=== PATIENT | female | born 1940 | race Caucasian/White ===

== ENCOUNTER 2017-03-28 07:57 | Day surgery (SDC) | payer MEDICARE, BC ==
[~2017-03-28 07:57] MED LIST: Povidone-Iodine 5% Sterile Ophth Soln 30 ML Bottle EYELF ONE
[2017-03-28] MEDS ORDERED: Midazolam 1 MG/ML 2 ML SDV IV ONE (07:58)
[2017-03-28] MEDS ORDERED: Dexamethasone 4 MG/ML SDV IV ONE (07:58)
[2017-03-28] MEDS ORDERED: Sodium Chloride 0.9% 10 ML Syringe IV ONE (07:58)
[2017-03-28] MEDS ORDERED: Ondansetron 4 MG/2 ML SDV IVPUSH PRN (08:00)
[2017-03-28] MEDS ORDERED: Cataract Ophth Solution EYELF ONE (08:00)
[2017-03-28] MEDS ORDERED: Timolol Maleate 0.5% Ophth Soln 5 ML Bottle EYELF ONE (08:00)
[2017-03-28] MEDS ORDERED: Moxifloxacin 0.5% Ophth Soln 3 ML Bottle EYELF ONE (08:00)
[2017-03-28] MEDS ORDERED: Sodium Chloride 0.9% 10 ML Syringe FLUSH PRN (08:00)
[2017-03-28] MEDS ORDERED: Acetaminophen 325 MG Tab PO PRN (08:00)
[2017-03-28] MEDS ORDERED: Phenylephrine 10% Ophth Soln 5 ML Bot EYELF ONE (08:00)
[2017-03-28] MEDS ORDERED: Phenylephrine 10% Ophth Soln 5 ML Bot EYELF PRN (08:00)
[2017-03-28] MEDS ORDERED: Proparacaine 0.5% Ophth Soln 15 ML Bottle EYELF ONE (08:00)
[2017-03-28] MEDS ORDERED: Lidocaine 1% 30 ML SDV ONE (09:28)
[2017-03-28] MEDS ORDERED: Povidone-Iodine 5% Sterile Ophth Soln 30 ML Bottle EYELF ONE (09:28)
[2017-03-28] MEDS ORDERED: Diclofenac Sodium 0.1% Ophth Soln 5 ML Bottle EYELF ONE (09:29)
[2017-03-28] MEDS ORDERED: Apraclonidine 0.5% Ophth Soln 5 ML Bot EYELF ONE (09:29)
[2017-03-28] MEDS ORDERED: Balanced Salt Solution Ophth Irrig 500 ML Bottle IOCULAR ONE (09:29)
[2017-03-28] MEDS ORDERED: Tetracaine HCl/PF 0.5% 4 ML Bottle EYELF ONE (09:29)
[2017-03-28] MEDS ORDERED: Dexamethasone/Neomycin/Polymyxin B Ophth Oint 3.5 GM Tube EYELF ONE (09:29)
[2017-03-28] MEDS ORDERED: Chondroitin Sulfate/Hyaluronate Sodium Ophth Inj 0.75 ML Syringe EYELF ONE (09:30)
[2017-03-28] MEDS ORDERED: Vancomycin 500 MG SDV EYELF ONE (09:30)
[2017-03-28] MEDS ORDERED: Acetylcholine 20 MG/2 ML Intraocular Inj Kit EYELF ONE (09:33)
[2017-03-28] MEDS ORDERED: Chondroitin Sulfate/Hyaluronate Sodium Ophth Inj 0.5 ML Syringe IOCULAR ONE (09:33)
--- NOTE | 2017-03-28 10:44 | OR ---
DATE: 03/28/2017 PREOPERATIVE DIAGNOSES: 1. Visually significant cataract, left eye. 2. Primary open angle glaucoma, left eye. POSTOPERATIVE DIAGNOSES: 1. Visually significant cataract, left eye. 2. Primary open angle glaucoma, left eye. PROCEDURES: 1. Extracapsular cataract extraction with intraocular lens implant. 2. Placement of iStent for glaucoma control. ANESTHESIA: Local MAC. INDICATION FOR PROCEDURE: Ms. Johnston was seen in the clinic. She has complained of a slow progressive change in vision. Difficulty seeing up close, difficulty seeing at distance, difficulty with bright lights and glare. Clinical examination reveals mixed nuclear and cortical cataract. Examination also reveals mild primary open-angle glaucoma. I explained options. I offered cataract surgery and I explained risks including, but not limited to infection, retinal detachment, loss of vision, need for additional surgery amongst others. We discussed implant options. She has requested a monofocal implant. I offered surgery with or without the iStent. She requested the iStent. OPERATIVE DESCRIPTION: The patient was prepped and draped in a sterile fashion and topical anesthesia was applied. Attention was placed on the operative eye. A sterile lid speculum was placed to allow operative exposure. Paracentesis was made temporal. Intracameral lidocaine was administered. Viscoelastic was injected. A full-thickness corneal incision was made using the trapezoidal blade. Bent needle cystotome was then used to make a small nael in the anterior capsule and a 360-degree curvilinear capsulorrhexis was created. Nucleus was then hydrodissected and hydrodelineated using balanced saline solution. Nucleus was then decompressed centrally and rotated and noted to be free of adhesions. Nucleus was then removed using the phacoemulsification handpiece. Additional viscoelastic was then injected into the capsular bag and the intraocular lens was inserted into the capsular bag. The iStent portion of the procedure was then performed. Following removal of the nucleus and cortex, the irrigation and aspiration handpiece was inserted to remove viscoelastic from the posterior surface of the IOL. Additional viscoelastic was then inserted into the anterior chamber angle directly opposite the corneal incision. Miochol was injected into the nasal iris to promote pupillary contraction. The patient's head was then rotated 35 degrees away from the initial position. The operating microscope was also rotated 35 degrees to achieve the proper orientation. The gonioprism was then placed onto the eye. The iStent was then inserted into the anterior chamber with the right hand and the stent was introduced into the pigmented trabecular meshwork. The stent was advanced beneath the trabecular meshwork until approximately two-thirds of the body was covered and then the stent was released from the insertion device. The stent was then tapped into its final resting position using the insertion device. The device was then reinspected to ensure that it was securely in position. The viscoelastic was aspirated from the anterior chamber. Wound and paracentesis sites were hydrated using balanced saline solution. Vancomycin 0.1 mL was injected into the anterior chamber. Intraocular lens was inspected and noted to be clear and well centered. Postoperative drops were placed and a sterile eye patch and shield were placed over the operative eye. The patient was then transported to the postoperative recovery area having tolerated the procedure well. No complications occurred. [facility] /[id number]
== END 2017-03-28 10:43 | disposition home or self-care (01) ==
LOC: DL.SDS 07:57
PROVIDERS: ATTEND Ophthalmology
DX: H25.012 Cortical age-related cataract, left eye (principal); H25.12 Age-related nuclear cataract, left eye; H40.1121 Primary open-angle glaucoma, left eye, mild stage; F32.9 Major depressive disorder, single episode, unspecified; F41.9 Anxiety disorder, unspecified; E78.5 Hyperlipidemia, unspecified; I10 Essential (primary) hypertension; J30.2 Other seasonal allergic rhinitis
CPT/HCPCS: 0191T; 66984; A9270; J1100; J2250; J3370; J7050; 00142; C1780; C1783

== ENCOUNTER 2017-04-04 08:22 | Day surgery (SDC) | payer MEDICARE, BC ==
[2017-04-04] MEDS ORDERED: Sodium Chloride 0.9% 10 ML Syringe IV ONE (08:23)
[2017-04-04] MEDS ORDERED: Midazolam 1 MG/ML 2 ML SDV IV ONE (08:23)
[2017-04-04] MEDS ORDERED: Dexamethasone 4 MG/ML SDV IV ONE (08:23)
[2017-04-04] MEDS ORDERED: Acetaminophen 325 MG Tab PO PRN (08:30)
[2017-04-04] MEDS ORDERED: Moxifloxacin 0.5% Ophth Soln 3 ML Bottle EYERT ONE (08:30)
[2017-04-04] MEDS ORDERED: Phenylephrine 10% Ophth Soln 5 ML Bot EYERT PRN (08:30)
[2017-04-04] MEDS ORDERED: Povidone-Iodine 5% Sterile Ophth Soln 30 ML Bottle EYERT ONE ×2 (08:30→10:50)
[2017-04-04] MEDS ORDERED: Proparacaine 0.5% Ophth Soln 15 ML Bottle EYERT ONE (08:30)
[2017-04-04] MEDS ORDERED: Cataract Ophth Solution EYERT ONE (08:30)
[2017-04-04] MEDS ORDERED: Ondansetron 4 MG/2 ML SDV IVPUSH PRN (08:30)
[2017-04-04] MEDS ORDERED: Sodium Chloride 0.9% 10 ML Syringe FLUSH PRN (08:30)
[2017-04-04] MEDS ORDERED: Timolol Maleate 0.5% Ophth Soln 5 ML Bottle EYERT ONE (08:30)
[2017-04-04] MEDS ORDERED: Phenylephrine 10% Ophth Soln 5 ML Bot EYERT ONE (08:30)
[2017-04-04] MEDS ORDERED: Tetracaine HCl/PF 0.5% 4 ML Bottle EYERT ONE (10:50)
[2017-04-04] MEDS ORDERED: Lidocaine 1% 30 ML SDV ONE (10:50)
[2017-04-04] MEDS ORDERED: Diclofenac Sodium 0.1% Ophth Soln 5 ML Bottle EYERT ONE (10:51)
[2017-04-04] MEDS ORDERED: Apraclonidine 0.5% Ophth Soln 5 ML Bot EYERT ONE (10:51)
[2017-04-04] MEDS ORDERED: Dexamethasone/Tobramycin 0.1-0.3% Ophth Oint 3.5 GM Tube EYERT ONE (10:51)
[2017-04-04] MEDS ORDERED: Balanced Salt Solution Ophth Irrig 500 ML Bottle IOCULAR ONE (10:52)
[2017-04-04] MEDS ORDERED: Vancomycin 500 MG SDV EYERT ONE (10:52)
[2017-04-04] MEDS ORDERED: Chondroitin Sulfate/Hyaluronate Sodium Ophth Inj 0.75 ML Syringe EYERT ONE (10:52)
[2017-04-04] MEDS ORDERED: Acetylcholine 20 MG/2 ML Intraocular Inj Kit EYERT ONE (10:52)
[2017-04-04] MEDS ORDERED: Chondroitin Sulfate/Hyaluronate Sodium Ophth Inj 0.5 ML Syringe IOCULAR ONE (10:52)
--- NOTE | 2017-04-04 11:35 | OR ---
DATE: 04/04/2017 PREOPERATIVE DIAGNOSES: 1. Visually significant cataract, right eye. 2. Primary open angle glaucoma, right eye. POSTOPERATIVE DIAGNOSES: 1. Visually significant cataract, right eye. 2. Primary open angle glaucoma, right eye. PROCEDURES: 1. Extracapsular cataract extraction with intraocular lens implant. 2. Placement of iStent for glaucoma control. ANESTHESIA: Local MAC. INDICATION: Ms. Johnston was seen in the clinic. She has complained of increased difficulty with bright lights and glare and a slow change in vision. Her clinical examination reveals visually significant mixed nuclear and cortical cataract. She has a history of mild primary open angle glaucoma. I explained options, offered cataract surgery; and I explained risks including but not limited to infection, retinal detachment, loss of vision, and need for additional surgery amongst others. We discussed implant options. She requested a monofocal implant. I offered surgery with or without the iStent. She requested the iStent procedure. OPERATIVE DESCRIPTION: The patient was prepped and draped in a sterile fashion and topical anesthesia was applied. Attention was placed on the operative eye. A sterile lid speculum was placed to allow operative exposure. Paracentesis was made temporal. Intracameral lidocaine was administered. Viscoelastic was injected. A full-thickness corneal incision was made using the trapezoidal blade. Bent needle cystotome was then used to make a small nael in the anterior capsule and a 360-degree curvilinear capsulorrhexis was created. Nucleus was then hydrodissected and hydrodelinated using balanced saline solution. Nucleus was then decompressed centrally and rotated and noted to be free of adhesions. Nucleus was then removed using the phacoemulsification handpiece. Additional viscoelastic was then injected into the capsular bag, and the intraocular lens was inserted into the capsular bag. The iStent portion of the procedure was then performed. Following removal of the nucleus and cortex, the irrigation and aspiration handpiece was inserted to remove viscoelastic from the posterior surface of the IOL. Additional viscoelastic was then inserted into the anterior chamber angle directly opposite the corneal incision. Miochol was injected into the nasal iris to promote pupillary contraction. The patient's head was then rotated 35 degrees away from the initial position. The operating microscope was also rotated 35 degrees to achieve the proper orientation. The gonioprism was then placed onto the eye. The iStent was then inserted into the anterior chamber with the right hand and the stent was introduced into the pigmented trabecular meshwork. The stent was advanced beneath the trabecular meshwork until approximately two-thirds of the body was covered and then the stent was released from the insertion device. The stent was then tapped into its final resting position using the insertion device. The device was then reinspected to ensure that it was securely in position. The viscoelastic was aspirated from the anterior chamber. Wound and paracentesis sites were hydrated using balanced saline solution. Vancomycin 0.1 mL was injected into the anterior chamber. Intraocular lens was inspected and noted to be clear and well centered. Postoperative drops were placed and a sterile eye patch and shield were placed over the operative eye. The patient was then transported to the postoperative recovery area having tolerated the procedure well. No complications occurred. [facility] /[id number]
== END 2017-04-04 11:55 | disposition home or self-care (01) ==
LOC: DL.SDS 08:22
PROVIDERS: ATTEND Ophthalmology
DX: H26.8 Other specified cataract (principal); H40.1111 Primary open-angle glaucoma, right eye, mild stage; H53.8 Other visual disturbances; F41.9 Anxiety disorder, unspecified; F32.9 Major depressive disorder, single episode, unspecified; E78.5 Hyperlipidemia, unspecified; J30.2 Other seasonal allergic rhinitis; Z88.1 Allergy status to other antibiotic agents; Z88.2 Allergy status to sulfonamides; Z88.8 Allergy status to other drugs, medicaments and biological substances; Z91.018 Allergy to other foods; Z79.82 Long term (current) use of aspirin; Z79.899 Other long term (current) drug therapy; H25.011 Cortical age-related cataract, right eye
CPT/HCPCS: 00142; 0191T; 66984; A9270; C1780; C1783; J1100; J2250; J3370; J7050

== ENCOUNTER 2020-07-06 05:55 | Day surgery (SDC) | payer MEDICARE, BC ==
[2020-07-06] MEDS ORDERED: fentaNYL 100 MCG/2 ML SDV IV ONE ×3 (05:56→07:17)
[2020-07-06] MEDS ORDERED: Midazolam 1 MG/ML 2 ML SDV IV ONE ×3 (05:56→07:19)
[2020-07-06] MEDS ORDERED: Sodium Chloride 0.9% 10 ML Syringe FLUSH PRN (06:00)
[2020-07-06] MEDS ORDERED: Dextrose 5%-0.45% NaCl 1,000 ML IV SCH (06:00)
[2020-07-06] MEDS ORDERED: Midazolam 1 MG/ML 2 ML SDV ONE (06:20)
[2020-07-06] MEDS ORDERED: fentaNYL 100 MCG/2 ML SDV ONE (06:20)
--- NOTE | 2020-07-06 08:30 | OR ---
DATE: 07/06/2020 PROCEDURE: Esophagogastroduodenoscopy and multiple pinch biopsies. INSTRUMENT USED: GIF-HQ190 Olympus video panendoscope. PREMEDICATIONS: No oral or topical anesthesia used. Fentanyl 75 mcg intravenous, Versed 1.5 mg intravenous. Nasal O2 cannula. The procedure was done under pulse oximetry, BP recording, and director of cardiac cath lab. INDICATION: The patient with recently detected iron-deficiency anemia, unexplained. Esophagogastroduodenoscopy is performed for detection of any active erosive lesions, [place] esophagus and/or malignancy also under consideration, H. pylori status to be determined, small bowel biopsies to be obtained for celiac disease if indicated, endoscopic hemostasis therapy if needed. DESCRIPTION OF PROCEDURE: The scope was passed with ease. Adequate visualization of the esophagus was made from proximal to distal areas. No upper esophageal lesions identified. No distal esophageal stricture. No uphill or downhill esophageal varices. No Jacque-Parikh tear. No evidence of erosive esophagitis by [place] criteria. No esophageal polyp or tumor mass identified. Z-line was seen at around 36 cm distal to the oral verge. Sliding hiatal hernia was noted. No proximal gastric varices noted. Gastric fundus examination by retroflexion showed Myron's erosions without bleeding from them. No gastric ulcer, malignant mass, or vascular ectasia identified. Few gastric antral erosions were noted. Duodenal bulb showed no ulcer. Visualized second part of the duodenum was unremarkable. Multiple pinch biopsies, 4 in number were taken from different areas of the second part of the duodenum and tissues were also obtained from the duodenal bulb at 9 and 12 o'clock positions and sent for any histopathologic evidence of celiac disease. Multiple pinch biopsies were also obtained from the gastric antrum and proximal body and sent for PyloriTek test for H pylori and histopathology. No bleeding was noted from any of the visualized areas at the completion of examination. Photographs were taken of the duodenal bulb, gastric antrum, fundus, and distal esophagus. IMPRESSION: 1. Sliding hiatal hernia. 2. Myron erosions. 3. Gastric antral erosions. The patient tolerated the procedure well. [facility] /[id number]
== END 2020-07-06 09:34 | disposition home or self-care (01) ==
LOC: DL.ENDO 05:55
PROVIDERS: ATTEND Internal Medicine Gastroenterology
DX: D50.9 Iron deficiency anemia, unspecified (principal); K44.9 Diaphragmatic hernia without obstruction or gangrene; E78.5 Hyperlipidemia, unspecified; I10 Essential (primary) hypertension; M81.0 Age-related osteoporosis without current pathological fracture; M41.9 Scoliosis, unspecified; Z88.1 Allergy status to other antibiotic agents; Z88.2 Allergy status to sulfonamides; Z88.6 Allergy status to analgesic agent; Z91.040 Latex allergy status; Z91.09 Other allergy status, other than to drugs and biological substances; Z98.890 Other specified postprocedural states
CPT/HCPCS: 43239; 87077; 88305; J2250; J3010; J7042

== ENCOUNTER 2020-07-08 05:29 | Day surgery (SDC) | payer MEDICARE, BC ==
[2020-07-08] MEDS ORDERED: fentaNYL 100 MCG/2 ML SDV IV ONE ×3 (05:30→06:37)
[2020-07-08] MEDS ORDERED: Midazolam 1 MG/ML 2 ML SDV IV ONE ×9 (05:30→06:53)
[2020-07-08] MEDS ORDERED: Sodium Chloride 0.9% 10 ML Syringe FLUSH PRN (06:00)
[2020-07-08] MEDS ORDERED: Dextrose 5%-0.45% NaCl 1,000 ML IV SCH (06:00)
[2020-07-08] MEDS ORDERED: Midazolam 1 MG/ML 2 ML SDV ONE (06:02)
[2020-07-08] MEDS ORDERED: fentaNYL 100 MCG/2 ML SDV ONE (06:03)
--- NOTE | 2020-07-08 08:38 | OR ---
DATE: 07/08/2020 PROCEDURE: Total colonoscopy. INSTRUMENT USED: PCF-H190DL Olympus video colonoscope. PREMEDICATIONS: Fentanyl 100 mcg intravenous, Versed 4 mg intravenous. Nasal O2 cannula. The procedure was done under pulse oximetry, BP recording, and radiation monitor. INDICATION: The patient with iron-deficiency anemia. Colonoscopic examination is done for detection of any polypoid lesions and removal, endoscopic hemostasis therapy if needed. DESCRIPTION OF PROCEDURE: Initial rectal exam was unremarkable. Rigid anoscopy showed small internal hemorrhoids without bleeding from them. The colonoscope was passed with ease. Numerous scattered diverticula were noted, more so in the distal left colon along with deformity. The colon was found to be tortuous and redundant. The scope was passed with relative ease up to the ileocecal area. Photographs were taken of the normal-appearing cecum, identified by double- bulged ileocecal folds. No bleeding was noted from any of the visualized areas at the commencement of the examination. The bowel preparation was found to be adequate, [place] scale 2 in all the regions, total score 6. No stricture. No vascular ectasia. No large isolated ulcerations seen. No evidence of diffuse inflammatory bowel disease in the form of friability, contact bleeding, or ulcerations. No polyp or tumor mass identified. Probing the proximal sides of folds and flexures using adequate distention and clearing up the stool material, withdrawal of the scope was made, cecum to rectum time over 6 minutes. No bleeding was noted from any of the visualized areas at the completion of examination. IMPRESSION: 1. Internal hemorrhoids. 2. Diverticulosis. The patient tolerated the procedure well. [facility] /[id number]
== END 2020-07-08 09:07 | disposition home or self-care (01) ==
LOC: DL.ENDO 05:29
PROVIDERS: ATTEND Internal Medicine Gastroenterology
DX: K57.30 Diverticulosis of large intestine without perforation or abscess without bleeding (principal); K64.8 Other hemorrhoids; K63.89 Other specified diseases of intestine; D50.9 Iron deficiency anemia, unspecified; E78.5 Hyperlipidemia, unspecified; I10 Essential (primary) hypertension; M81.0 Age-related osteoporosis without current pathological fracture; Z88.2 Allergy status to sulfonamides; Z88.1 Allergy status to other antibiotic agents; Z88.6 Allergy status to analgesic agent; Z91.09 Other allergy status, other than to drugs and biological substances
CPT/HCPCS: 45378; J2250; J3010; J7042

== ENCOUNTER 2021-04-08 06:12 | Emergency (ER) | payer MEDICARE, BC ==
[2021-04-08] MEDS ORDERED: Oxymetazoline 0.05% Nasal Spray 30 ML Bottle NAS ONE (06:20)
[2021-04-08 07:05] LABS: ANION GAP 14.7 mEq/L (7-13); CHLORIDE,CL 102 mmol/L (98-107); SODIUM,NA 139 mmol/L (136-145)
== END 2021-04-08 07:45 | disposition home or self-care (01) ==
LOC: DL.ED 06:12
DX: R04.0 Epistaxis (principal); E78.00 Pure hypercholesterolemia, unspecified; I10 Essential (primary) hypertension; Z88.1 Allergy status to other antibiotic agents; Z91.040 Latex allergy status; Z88.8 Allergy status to other drugs, medicaments and biological substances; Z88.2 Allergy status to sulfonamides; Z91.018 Allergy to other foods; Z79.82 Long term (current) use of aspirin; Z79.899 Other long term (current) drug therapy
CPT/HCPCS: 36415; 80053; 85025; 85610; 99283; A9270; 99284